=== PATIENT | female | born 1945 | race African-American/Black ===

== ENCOUNTER 2016-10-10 16:33 | Inpatient (IN) | payer OTHER, BC ==
[~2016-10-10] VITALS: Ht 162.6 cm; Wt 51.7 kg
--- NOTE | ~2016-10-10 | EKG ---
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
--- NOTE | ~2016-10-10 | 2DMMODE ---
[facility] [address] [place] [address] 2 D/M-MODE ECHOCARDIOGRAM Name: ARMIN SILVERIO Room #: 458-P [facility] IN .R.#: [id number] Admission: 10/10/16 Attend Phys: Jun Castillo, Discharge: Date of : 49 Date of Service: 10/11/16 1629 Report #: [id number] THIS REPORT FOR: //name// APPROVED REPORT Study performed: 10/11/2016 13:46:00 EXAM: Comprehensive 2D, Doppler, and color-flow Echocardiogram Patient Location: Bedside Room #: 458 Status: routine BSA: 1.54 HR: 105 bpm BP: 165/90 mmHg Other Information Study Quality: Adequate Indications Pulmonary Hypertension 2D Dimensions RVDd: 35.73 mm LVEF(%): 62.84 (>50%) IVSd: 6.77 (7-11mm) LVOT Diam: 20.94 (18-24mm) LVDd: 37.60 mm PWd: 9.21 (7-11mm) Ascending Ao: 26.04 (22-36mm) LVDs: 25.06 (25-40mm) Aortic Root: 27.94 mm IVC: 1.70 mm Marr's LVEF: 62.84 % Volumes Left Atrial Volume (Systole) Single Plane 4CH: 24.39 mL Single Plane 2CH: 21.58 mL LA ESV Index: 17.00 mL/m2 Aortic Valve AoV Peak Avi.: 1.26 m/s AO Peak Gr.: 6.31 mmHg LVOT Max P.33 mmHg LVOT Max V: 0.91 m/s JEANETTE Vmax: 2.50 cm2 Mitral Valve E/A Ratio: 0.8 MV Decel. Time: 207.99 ms MV E Max Avi.: 0.56 m/s [facility] [place] [address] 2 D/M-MODE ECHOCARDIOGRAM Name: SOTERO SILVERIOINE Room #: 458-P [facility] IN .R.#: [id number] Admission: 10/10/16 Attend Phys: Jun Castillo, Discharge: Date of : 49 Date of Service: 10/11/16 1629 Report #: [id number] MV A Avi.: 0.68 m/s MV PHT: 60.32 ms IVRT: 87.66 ms Pulmonary Valve PV Peak Avi.: 1.86 m/s PV Peak Gr.: 13.83 mmHg Tricuspid Valve TR Peak Avi.: 3.79 m/s RAP Estimate: 5.00 mmHg TR Peak Gr.: 57.32 mmHg PA Pressure: 62.00 mmHg Left Ventricle The left ventricle is normal size. There is normal left ventricular wall thickness. The left ventricular systolic function is normal. The left ventricular ejection fraction is within the normal range. LVEF is 60-65%. Grade I - abnormal relaxation pattern. Right Ventricle The right ventricle is normal size. The right ventricular systolic function is normal. Atria The left atrium size is normal. The right atrium size is dilated. Aortic Valve Aortic valve is calcified. No aortic regurgitation is present. There is no aortic valvular stenosis. Mitral Valve Mitral valve leaflets are thickened. Trace mitral regurgitation. No evidence of mitral valve stenosis. Tricuspid Valve The tricuspid valve is normal in structure. There is trace tricuspid regurgitation. The right atrial pressure is estimated at 5 mmHg. There is moderate pulmonary hypertension with an estimated PAP of 62 mmHg. Pulmonic Valve The pulmonary valve is normal in structure. Trace pulmonic regurgitation. Great Vessels The aortic root is normal in size. The ascending aorta is normal in [facility] [address] [place] [address] 2 D/M-MODE ECHOCARDIOGRAM Name: ARMIN SILVERIO Room #: 458-P [facility] IN ..#: [id number] Admission: 10/10/16 Attend Phys: Jun Castillo, Discharge: Date of : 49 Date of Service: 10/11/16 1629 Report #: [id number] size. IVC is normal in size and collapses >50% with inspiration. Pericardium There is no pericardial effusion. <Conclusion> Technically difficult study. The left ventricle is normal size. The left ventricular systolic function is normal. The right ventricle is normal size. The right atrium size is dilated. Aortic valve is calcified. There is no aortic valvular stenosis. Trace mitral regurgitation. There is trace tricuspid regurgitation. There is probable moderate pulmonary hypertension. <ELECTRONICALLY SIGNED> By: Manfred Wood MD 10/11/16 1629 1629 1629 Manfred Wood MD /INF
--- NOTE | ~2016-10-10 | EEG ---
[facility] [place] [address] ELECTROENCEPHALOGRAM Name: ARMIN SILEVRIO Room #: 458-P [facility] IN M.R.#: [id number] Admission: 10/10/16 Attend Phys: Jun Castillo DO Discharge: Date of : 49 Report #: [id number] THIS REPORT FOR: //name// CC: Jun Basurto DATE OF SERVICE: 10/11/2016 This patient is being evaluated for altered mental status. EEG was done by placing the electrodes by standard 10-20 system of electrode placement. Both referential and sequential montages were used for recording. Background activity in this patient's EEG is about 8 Hz and 20 microvolts. During part of the EEG, the patient appeared to be asleep and that is associated with bilateral slowing and vertex sharp waves. Photic stimulation is unremarkable. Throughout the record, no active epileptiform activity was noticed. IMPRESSION: This patient's EEG is moderately abnormal because it is disorganized and poorly formed. That is a nonspecific abnormality, which can occur with encephalopathy, effect of psychotropic medication, dementia, etc. Clinical correlation is recommended. Thank you very much for this referral. <ELECTRONICALLY SIGNED> By: Soham Hernandez MD 10/13/161940 12 27 Soham Hernandez MD /nt
[~2016-10-10 16:33] MED LIST: ASPIRIN325 PO; CERTAGEN TABLE1 EACH PO; COLACE100 MG PO; EFFIENT10 MG PO; NITROSTAT0.4 MG SL; ZOCOR 20 MG TAB20 M1 PO
[2016-10-10 16:37] VITALS: BP 137/83
[2016-10-10 17:28] LABS: ABSOLUTE NEUTROPHILS 8.4 thou/uL (1.4-8.2); BASOPHILS 0.7 % (0.0-2.0); HEMATOCRIT 46.5 % (37.0-47.0); MCHC 34.5 g/dL (28.0-37.0); MCV 87.2 fL (80.0-100.0); MONOCYTES 4.7 % (1.0-8.0); PLATELET COUNT 207 thou/uL (150-400); POLYS 79.6 % (36.0-66.0); RBC 5.33 mil/uL (4.20-5.00); RDW 13.6 % (10.5-14.5); WBC 10.5 thou/uL (4.0-11.0)
[2016-10-10 17:29] LABS: MANUAL DIFF NO
[2016-10-10 17:32] LABS: URINE BLOOD TRACE (Negative); URINE COLOR YELLOW; URINE GLUCOSE-RANDOM* NEGATIVE (Negative); URINE KETONES 1+ (Negative); URINE LEUKOCYTES-REFLEX NEGATIVE (Negative); URINE PROTEIN (DIPSTICK) TRACE (Negative); URINE SPECIFIC GRAVITY 1.015 (1.003-1.035); URINE UROBILINOGEN 0.2 E.U./dl (0.2-1.0)
[2016-10-10 17:39] LABS: URINE BILIRUBIN NEGATIVE (Negative)
[2016-10-10 17:54] LABS: CALCIUM 9.5 mg/dL (8.5-10.1)
[2016-10-10 18:00] LABS: DIRECT BILIRUBIN 0.1 mg/dL (<0.1-0.3); TOTAL BILIRUBIN 0.7 mg/dL (<0.1-1.0); TOTAL PROTEIN 7.5 g/dL (6.4-8.2)
[2016-10-10 20:24] VITALS: BP 137/83
[2016-10-10 20:57] VITALS: BP 132/70
[2016-10-10 21:19] VITALS: BP 110/71
[2016-10-10 21:53] LABS: CHOLESTEROL 243 mg/dL (<200); HDL CHOLESTEROL 42 mg/dL (>40); LDL CHOLESTEROL 176 mg/dL (<100); TC:HDL 5.8 Ratio (Not establshd); TRIGLYCERIDE 125 mg/dL (<150); VLDL 25 mg/dL (<40)
[2016-10-10 21:55] LABS: SERUM ASSESSMENT Clear
[2016-10-10] MEDS ORDERED: MULTIVITAMINS1 EAC7 PO (22:30)
[2016-10-10] MEDS ORDERED: MILK OF MA400 MG/5 M PO (22:31)
[2016-10-10 22:57] LABS: TSH 0.591 uIU/mL (0.358-3.740)
[2016-10-11] VITALS: BP 109/68
[2016-10-11 05:05] LABS: HEMATOCRIT 46.5 % (37.0-47.0); HEMOGLOBIN 15.2 gm/dL (12.0-15.0); MCHC 32.7 g/dL (28.0-37.0); MCV 88.7 fL (80.0-100.0); RBC 5.24 mil/uL (4.20-5.00); RDW 13.8 % (10.5-14.5); WBC 9.4 thou/uL (4.0-11.0)
[2016-10-11 05:26] LABS: ANION GAP 8 mmol/L (7-16); BUN 9 mg/dL (7-18); CALCIUM 8.8 mg/dL (8.5-10.1); CHLORIDE 98 mmol/L (98-107); CO2 27 mmol/L (21-32); CREATININE 0.8 mg/dL (0.6-1.0); GLUCOSE 73 mg/dL (74-106); POTASSIUM 4.1 mmol/L (3.5-5.1); SODIUM 133 mmol/L (136-145); TROPONIN-I < 0.04 ng/mL (<0.04-0.07)
[2016-10-11 05:42] VITALS: BP 156/99
[2016-10-11 07:15] VITALS: BP 115/69
[2016-10-11 11:20] VITALS: BP 165/90
[2016-10-11 16:17] VITALS: BP 148/95
[2016-10-11 19:09] VITALS: BP 132/83
[2016-10-12 01:06] LABS: GLYCOHEMOGLOBIN (HGB A1C) 5.7 % (4.8-5.6)
[2016-10-12 03:55] VITALS: BP 136/79
[2016-10-12 05:56] LABS: CALCIUM 8.5 mg/dL (8.5-10.1); CREATININE 0.6 mg/dL (0.6-1.0); POTASSIUM 4.1 mmol/L (3.5-5.1)
[2016-10-12 06:51] LABS: ABSOLUTE NEUTROPHILS 9.4 thou/uL (1.4-8.2); BASOPHILS 0.5 % (0.0-2.0); HEMATOCRIT 40.5 % (37.0-47.0); HEMOGLOBIN 13.4 gm/dL (12.0-15.0); LYMPHOCYTES 14.3 % (24.0-44.0); MCH 29.2 pg (26.0-34.0); MCHC 33.1 g/dL (28.0-37.0); MCV 88.2 fL (80.0-100.0); MONOCYTES 6.8 % (1.0-8.0); PLATELET COUNT 164 thou/uL (150-400); POLYS 78.4 % (36.0-66.0); RBC 4.59 mil/uL (4.20-5.00); RDW 13.9 % (10.5-14.5); WBC 11.9 thou/uL (4.0-11.0)
[2016-10-12 07:00] LABS: MANUAL DIFF NO
[2016-10-12 08:28] VITALS: BP 105/67
[2016-10-12 13:30] VITALS: BP 110/72
[2016-10-12 15:13] LABS: APTT 28.5 Seconds (24.5-32.8); PROTIME 10.7 Seconds (9.3-11.4)
[2016-10-12 16:55] LABS: CSF CLARITY CLEAR; CSF COLOR COLORLESS; NUMBER OF TUBES 4; VOLUME 12 ml
[2016-10-12 17:03] LABS: CSF GLUCOSE 50 mg/dL (40-70); CSF PROTEIN 61 mg/dL (15-45)
[2016-10-12 17:19] LABS: MANUAL DIFF YES
[2016-10-12 17:23] LABS: CSF WBC 45 /mm3 (0-10)
[2016-10-12 17:37] VITALS: BP 169/90
[2016-10-12 17:57] LABS: CSF EOSINOPHILS 0 %; CSF LYMPHOCYTES 41 %
[2016-10-12 17:58] LABS: CSF MONONUCLEARS 26 %; CSF POLYS 33 %
[2016-10-12 20:15] VITALS: BP 148/93
[2016-10-12 23:34] VITALS: BP 148/94
[2016-10-13 04:06] VITALS: BP 117/72
[2016-10-13 08:07] VITALS: BP 122/71
[2016-10-13 08:18] VITALS: BP 122/71
[2016-10-13 14:06] VITALS: BP 135/85
[2016-10-13 17:15] VITALS: BP 135/87
[2016-10-13 19:49] VITALS: BP 137/87
[2016-10-14 01:07] LABS: HSV 2 IgG <0.91 index (0.00-0.90)
[2016-10-14 04:04] VITALS: BP 145/87
[2016-10-14 07:00] VITALS: BP 145/71
[2016-10-14] MEDS ORDERED: NICOTINE TRANSD14 M1 TRANSDERM (10:25)
[2016-10-14] MEDS ORDERED: DUONEB 2.5-0.5 M3 ML INH (10:25)
[2016-10-14] MEDS ORDERED: ENOXAPARIN60 MG/0.1 SUBQ (10:25)
[2016-10-14] MEDS ORDERED: ATORVASTATIN CA10 MG PO (10:26)
[2016-10-14] MEDS ORDERED: MIRALAX17 GM PO (10:26)
[2016-10-14 13:08] LABS: ALPHA TOCOPHEROL 12.1 mg/L (6.5-21.5)
[2016-10-14 22:11] LABS: HSV 1/2 IGM ABS 2.86 Ratio (0.00-0.90)
== END 2016-10-14 16:11 | DRG 97 ==
LOC: ER 16:33 → 4W 20:06 → EROBS 20:06 → 4W 20:57
PROVIDERS: Emergency Medicine; Family Medicine; Internal Medicine Infectious Disease; Nurse Practitioner Family; Psychiatry & Neurology Neurology
PROC: 4A10X4Z Monitoring of Central Nervous Electrical Activity, External Approach (ICD-10-PCS; principal; 2016-10-11)
PROC: 009U3ZX Drainage of Spinal Canal, Percutaneous Approach, Diagnostic (ICD-10-PCS; 2016-10-12)
DX: G03.0 Nonpyogenic meningitis (principal); I26.99 Other pulmonary embolism without acute cor pulmonale; G93.40 Encephalopathy, unspecified; E87.1 Hypo-osmolality and hyponatremia; F17.210 Nicotine dependence, cigarettes, uncomplicated; J43.9 Emphysema, unspecified; I49.9 Cardiac arrhythmia, unspecified; E78.5 Hyperlipidemia, unspecified; I27.2 Other secondary pulmonary hypertension; Z86.718 Personal history of other venous thrombosis and embolism
CPT/HCPCS: 10045

== ENCOUNTER 2016-10-14 14:04 | Inpatient (IN) | payer OTHER, BC ==
[~2016-10-14] VITALS: Ht 162.6 cm; Wt 54.0 kg
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
[~2016-10-14 14:04] MED LIST changes: +ATORVASTATIN CA10 MG PO; +DUONEB 2.5-0.5 M3 ML INH; +ENOXAPARIN60 MG/0.1 SUBQ; +MILK OF MA400 MG/5 M PO; +MIRALAX17 GM PO; +MULTIVITAMINS1 EAC7 PO; +NICOTINE TRANSD14 M1 TRANSDERM
[2016-10-15 05:47] LABS: HEMATOCRIT 39.9 % (37.0-47.0); HEMOGLOBIN 13.4 gm/dL (12.0-15.0); MCH 29.5 pg (26.0-34.0); MCHC 33.6 g/dL (28.0-37.0); MCV 87.6 fL (80.0-100.0); RBC 4.56 mil/uL (4.20-5.00); RDW 13.6 % (10.5-14.5); WBC 6.4 thou/uL (4.0-11.0)
[2016-10-15 05:54] VITALS: BP 145/71
[2016-10-15 06:06] LABS: CALCIUM 8.7 mg/dL (8.5-10.1); CREATININE 0.5 mg/dL (0.6-1.0); POTASSIUM 3.1 mmol/L (3.5-5.1)
[2016-10-15 09:15] VITALS: BP 131/71
[2016-10-16 05:12] VITALS: BP 150/74
[2016-10-16 16:34] VITALS: BP 128/64
[2016-10-17 06:26] VITALS: BP 121/60
[2016-10-17 16:25] VITALS: BP 92/43
[2016-10-18 04:30] VITALS: BP 118/60
[2016-10-18 09:19] LABS: CALCIUM 9.4 mg/dL (8.5-10.1); CREATININE 0.5 mg/dL (0.6-1.0); POTASSIUM 3.7 mmol/L (3.5-5.1); TOTAL BILIRUBIN 0.3 mg/dL (<0.1-1.0); TOTAL PROTEIN 6.1 g/dL (6.4-8.2)
[2016-10-18 16:00] VITALS: BP 95/56
[2016-10-18 20:35] VITALS: BP 123/56
[2016-10-19 06:10] LABS: ABSOLUTE NEUTROPHILS 3.3 thou/uL (1.4-8.2); BASOPHILS 0.6 % (0.0-2.0); EOSINOPHILS 0.7 % (0.0-3.0); HEMATOCRIT 37.3 % (37.0-47.0); HEMOGLOBIN 13.1 gm/dL (12.0-15.0); LYMPHOCYTES 30.2 % (24.0-44.0); MCH 30.7 pg (26.0-34.0); MCHC 35.1 g/dL (28.0-37.0); MCV 87.6 fL (80.0-100.0); MONOCYTES 11.4 % (1.0-8.0); PLATELET COUNT 184 thou/uL (150-400); POLYS 57.1 % (36.0-66.0); RBC 4.26 mil/uL (4.20-5.00); RDW 13.5 % (10.5-14.5); WBC 5.8 thou/uL (4.0-11.0)
[2016-10-19 06:13] LABS: MANUAL DIFF NO
[2016-10-19 06:23] LABS: CALCIUM 8.9 mg/dL (8.5-10.1); CREATININE 0.4 mg/dL (0.6-1.0); POTASSIUM 3.5 mmol/L (3.5-5.1)
[2016-10-19 07:44] VITALS: BP 129/58
[2016-10-19 19:25] VITALS: BP 108/68
[2016-10-20 09:00] VITALS: BP 98/61
[2016-10-20 20:25] VITALS: BP 125/71
[2016-10-21 09:00] VITALS: BP 96/47
[2016-10-21] MEDS ORDERED: MIRALAX17 GM PO (11:08)
[2016-10-21] MEDS ORDERED: PRADAXA150 MG PO (11:08)
[2016-10-21] MEDS ORDERED: ATORVASTATIN CA10 MG PO (11:08)
[2016-10-21] MEDS ORDERED: MEGESTROL40 MG/1 M1 PO (11:08)
[2016-10-21] MEDS ORDERED: COLACE100 MG PO (11:08)
[2016-10-21] MEDS ORDERED: PROTONIX40 M1 PO (11:08)
[2016-10-21] MEDS ORDERED: REQUIP 1 MG TABL1 M1 PO (11:08)
[2016-10-21] MEDS ORDERED: VENTOLIN HFA 1818 GM INH (11:08)
[2016-10-21 14:38] VITALS: BP 96/47
[2016-10-21 21:07] VITALS: BP 110/62
[2016-10-22 07:50] VITALS: BP 118/70
[2016-10-22 11:46] VITALS: BP 96/47
== END 2016-10-22 13:14 | disposition home health service (06) | DRG 97 ==
LOC: ENTRNSPT 10-22 12:21 → EDTRNSPTSTS 10-22 12:26
PROVIDERS: Nurse Practitioner; Physical Medicine & Rehabilitation
DX: G03.0 Nonpyogenic meningitis (principal); G93.40 Encephalopathy, unspecified; I26.99 Other pulmonary embolism without acute cor pulmonale; E44.0 Moderate protein-calorie malnutrition; D64.9 Anemia, unspecified; F17.210 Nicotine dependence, cigarettes, uncomplicated; R41.89 Other symptoms and signs involving cognitive functions and awareness; E78.5 Hyperlipidemia, unspecified; J43.9 Emphysema, unspecified; R53.81 Other malaise; I27.2 Other secondary pulmonary hypertension; I10 Essential (primary) hypertension; E87.6 Hypokalemia; G20 Parkinson's disease; Z86.718 Personal history of other venous thrombosis and embolism; Z79.01 Long term (current) use of anticoagulants; Z79.899 Other long term (current) drug therapy; Z68.20 Body mass index [BMI] 20.0-20.9, adult
CPT/HCPCS: 10112

== ENCOUNTER → 2016-11-11 | Outpatient (CLI) | payer OTHER, BC ==
[~2016-11-11] MED LIST changes: +MEGESTROL40 MG/1 M1 PO; +PRADAXA150 MG PO; +PROTONIX40 M1 PO; +REQUIP 1 MG TABL1 M1 PO; +VENTOLIN HFA 1818 GM INH
[2016-11-11 13:14] LABS: CREATININE 0.6 mg/dL (0.6-1.0)
== END ==
LOC: CAT 12:40
PROVIDERS: Internal Medicine Pulmonary Disease
DX: I25.10 Atherosclerotic heart disease of native coronary artery without angina pectoris (principal); M41.80 Other forms of scoliosis, site unspecified; I26.99 Other pulmonary embolism without acute cor pulmonale

== ENCOUNTER → 2017-07-19 | Outpatient (CLI) | payer OTHER, BC | LOC: RAD 12:51 | DX: J44.9 Chronic obstructive pulmonary disease, unspecified (principal) ==

== ENCOUNTER → 2018-06-29 | Outpatient (CLI) | payer OTHER, BC | LOC: RAD 12:47 | DX: J43.9 Emphysema, unspecified (principal); M41.84 Other forms of scoliosis, thoracic region; M47.814 Spondylosis without myelopathy or radiculopathy, thoracic region ==

== ENCOUNTER → 2020-09-26 | Outpatient (CLI) | payer OTHER, BC | LOC: CAT 10:33 | PROVIDERS: ATTEND Pediatrics | DX: J98.4 Other disorders of lung (principal); J43.8 Other emphysema; J98.11 Atelectasis; I70.0 Atherosclerosis of aorta; I25.10 Atherosclerotic heart disease of native coronary artery without angina pectoris; M47.814 Spondylosis without myelopathy or radiculopathy, thoracic region; Z87.891 Personal history of nicotine dependence ==